=== PATIENT | male | born 1930 | race Caucasian/White ===

== ENCOUNTER 2018-09-15 17:34 | Emergency (ER) | payer MEDICARE ==
[~2018-09-15] VITALS: Ht 172.7 cm; Wt 74.5 kg
[2018-09-15 17:36] VITALS: Ht 172.7 cm; Wt 74.5 kg
[2018-09-15] MEDS ORDERED: TORADOL10 MG PO (19:35)
[2018-09-15 19:37] VITALS: BP 178/99
== END 2018-09-15 19:53 | disposition home or self-care (01) ==
LOC: D.ER 17:34
DX: S80.11XA Contusion of right lower leg, initial encounter (principal); V43.52XA Car driver injured in collision with other type car in traffic accident, initial encounter; Y93.89 Activity, other specified; Y92.410 Unspecified street and highway as the place of occurrence of the external cause; S61.412A Laceration without foreign body of left hand, initial encounter